=== PATIENT | female | born 1950 | race African-American/Black ===

== ENCOUNTER 2023-04-05 08:14 | Emergency (ER) | payer MEDICARE, OTHER ==
[~2023-04-05] VITALS: Ht 167.6 cm; Wt 68.7 kg
[2023-04-05] MEDS ORDERED: PANTOPRAZOLE SODIUM 80 MG in SODIUM CHLORIDE 0.9% 100 ML IV SCH (08:30)
[2023-04-05 08:37] LABS: BASOPHILS % (AUTO) 0.4 % (0.0-2.0); EOSINOPHILS % (AUTO) 0.1 % (1.0-6.0); LYMPHOCYTES # (AUTO) 4.5 K/uL (1.0-4.8); LYMPHOCYTES % (AUTO) 27.4 % (22.0-44.0); MEAN CORPUSCULAR HEMOGLOBIN 26.7 pg (26.0-34.0); MEAN CORPUSCULAR HGB CONC 31.3 G/dL (31.0-37.0); MEAN CORPUSCULAR VOLUME 85 fL (80-100); MONOCYTES % (AUTO) 5.9 % (2.0-9.0); NEUTROPHILS # (AUTO) 10.9 K/uL (1.8-7.7); NEUTROPHILS % (AUTO) 66.2 % (40.0-70.0); PLATELET COUNT (AUTO) 178 K/uL (150-450); RED BLOOD CELL COUNT(AUTO) 1.91 MIL/uL (4.00-5.20); RED CELL DISTRIBUTION WIDTH 16.6 % (11.5-14.5)
[2023-04-05 08:44] LABS: CALCIUM, TOTAL 8.2 mg/dL (8.8-10.5); CREATININE 1.07 mg/dL (0.60-1.30); POTASSIUM 3.5 mmol/L (3.5-5.1)
[2023-04-05 08:46] LABS: HEMOGLOBIN 5.1 g/dL (12.0-16.0); INR 1.2 (0.9-1.1); PROTHROMBIN TIME 12.5 SEC (9.4-11.6)
[2023-04-05 08:47] LABS: HEMATOCRIT 16.3 % (36-46)
[2023-04-05 08:50] LABS: ALBUMIN 2.2 g/dL (3.4-5.0); BILIRUBIN,TOTAL 0.2 mg/dL (0.1-1.0)
[2023-04-05] MEDS ORDERED: SODIUM CHLORIDE 0.9% 1,000 ML IV ONE (09:15)
[2023-04-05 09:26] LABS: % IRON SATURATION 18.1 % (22-44)
[2023-04-05] MEDS ORDERED: ONDANSETRON HCL 4 MG/2 ML VIAL IVP ONE (10:30)
[2023-04-05] MEDS ORDERED: OCTREOTIDE ACETATE 500 MCG in SODIUM CHLORIDE 0.9% 97.5 ML IV SCH (10:45)
[2023-04-05 12:58] VITALS: BP 100/58; PULSE 90; RESP 18; TEMP 97.3
== END 2023-04-05 13:00 | disposition short-term general hospital (02) ==
LOC: EMS 08:14
DX: K92.2 Gastrointestinal hemorrhage, unspecified (principal); F10.20 Alcohol dependence, uncomplicated; F17.210 Nicotine dependence, cigarettes, uncomplicated; Z96.649 Presence of unspecified artificial hip joint
CPT/HCPCS: 99291; 36430; 96365; 96367; 96375; 80053; 82271; 82550; 83540; 83550; 83880; 84484; 85025; 85610; 85730; 86850; 86900; 86901; 86923; 71045; 93005; P9016; J2405; C9113; J7050; J2354